=== PATIENT | male | born 1955 | race Caucasian/White ===

== ENCOUNTER 2018-09-25 13:22 | Outpatient (REF) | payer BC, SELFPAY ==
[2018-09-25 22:25] LABS: Microalb ug/mg Crea 35.9 ug/mg Cr
== END 2018-09-25 13:42 ==
LOC: NCHCN 13:22
PROVIDERS: Visit Provider Internal Medicine
DX: R07.9 Chest pain, unspecified (principal); E11.9 Type 2 diabetes mellitus without complications
CPT/HCPCS: 82043; 82570

== ENCOUNTER 2018-10-02 16:00 | Outpatient (REF) | payer BC, SELFPAY ==
[2018-10-02 20:58] LABS: BUN 20 mg/dL (7-18); CREATININE 1.36 mg/dL (0.70-1.30); Calcium 9.2 mg/dL (8.5-10.1); Chloride 98 mmol/L (98-107); Glucose 254 mg/dL (70-100); Potassium 4.3 mmol/L (3.5-5.1); Sodium 136 mmol/L (136-145)
== END 2018-10-02 16:20 ==
LOC: NCHCN 16:00
PROVIDERS: Visit Provider Internal Medicine
DX: I10 Essential (primary) hypertension (principal)
CPT/HCPCS: 80048

== ENCOUNTER 2019-03-08 22:01 | Outpatient (REF) | payer BC, SELFPAY ==
[2019-03-08 21:59] LABS: Anion Gap 9.7 mmol/L (3-11); BUN 16 mg/dL (7-18); CO2 28.3 mmol/L (21.0-32.0); CREATININE 1.33 mg/dL (0.70-1.30); Calcium 8.8 mg/dL (8.5-10.1); Chloride 103 mmol/L (98-107); Estimated GFR 54.48 (mL/min/1.73m2); Glucose 218 mg/dL (70-100); Sodium 141 mmol/L (136-145)
== END 2019-03-08 22:21 ==
LOC: NCHCN 22:01
PROVIDERS: Visit Provider Internal Medicine
DX: I10 Essential (primary) hypertension (principal)
CPT/HCPCS: 80048

== ENCOUNTER 2019-09-24 12:23 | Outpatient (REF) | payer BC, SELFPAY ==
[2019-09-24 21:01] LABS: BUN 17 mg/dL (7-18); CREATININE 1.32 mg/dL (0.70-1.30); Calcium 9.1 mg/dL (8.5-10.1); Chloride 101 mmol/L (98-107); Estimated GFR 54.78 (mL/min/1.73m2); Glucose 158 mg/dL (74-106); Potassium 4.3 mmol/L (3.5-5.1); Sodium 139 mmol/L (136-145)
== END 2019-09-24 12:43 ==
LOC: NCHCN 12:23
PROVIDERS: Visit Provider Internal Medicine
DX: I10 Essential (primary) hypertension (principal)
CPT/HCPCS: 80048

== ENCOUNTER 2020-01-03 13:37 | Outpatient (REF) | payer BC, SELFPAY ==
[2020-01-03 21:04] LABS: Anion Gap 10.8 mmol/L (3-11); BUN 20 mg/dL (7-18); CO2 26.2 mmol/L (21.0-32.0); CREATININE 1.56 mg/dL (0.70-1.30); Calcium 8.9 mg/dL (8.5-10.1); Chloride 102 mmol/L (98-107); Estimated GFR 45.18 (mL/min/1.73m2); Glucose 146 mg/dL (74-106); Sodium 139 mmol/L (136-145)
== END 2020-01-03 13:57 ==
LOC: NCHCN 13:37
PROVIDERS: Visit Provider Internal Medicine
DX: I10 Essential (primary) hypertension (principal)
CPT/HCPCS: 80048

== ENCOUNTER 2020-10-05 18:14 | Outpatient (REF) | payer BC, SELFPAY ==
[2020-10-05 21:02] LABS: HCT 45.9 % (40.0-50.0); HGB 15.3 g/dL (13.5-17.5); MCH 29.9 pg (27.0-33.0); MCHC 33.3 % (32.0-36.0); MCV 89.8 fL (80-95); MPV 10.2 fL (8.0-11.0); Platelet Count 227 10^3/uL (130-400); RBC 5.11 10^6/uL (4.36-5.78); RDW 12.8 % (11.8-14.1); RDW-SD 42.2 fL; WBC 8.82 10^3/uL (4.4-10.8)
[2020-10-05 21:23] LABS: ALT 39 U/L (16-63); AST 23 U/L (15-37); Albumin 3.7 g/dL (3.4-5.0); Alkaline Phosphatase 92 U/L (46-116); Anion Gap 10.3 mmol/L (3-11); BUN 19 mg/dL (7-18); Bilirubin, Total 0.2 mg/dL (0.2-1.0); CO2 25.7 mmol/L (21.0-32.0); CREATININE 1.4 mg/dL (0.70-1.30); Calcium 8.9 mg/dL (8.5-10.1); Chloride 102 mmol/L (98-107); Cholesterol 163 mg/dL (<200); Estimated GFR 51.02 (mL/min/1.73m2); Glucose 315 mg/dL (74-106); HDL Cholesterol 24 mg/dL (40-60); Potassium 4.6 mmol/L (3.5-5.1); Sodium 138 mmol/L (136-145); Total Protein 7.1 g/dL (6.4-8.2); Triglyceride 461 mg/dL (<150)
[2020-10-05 22:26] LABS: LDL CHOLESTEROL 70 mg/dL (<100)
[2020-10-06 16:58] LABS: PSA, Screening 0.7 ng/mL (0.0-4.5)
== END 2020-10-05 18:15 | disposition home or self-care (01) ==
LOC: NCHCN 18:14
PROVIDERS: Visit Provider Internal Medicine
DX: E11.9 Type 2 diabetes mellitus without complications (principal); N18.30 Chronic kidney disease, stage 3 unspecified; I25.10 Atherosclerotic heart disease of native coronary artery without angina pectoris; Z12.5 Encounter for screening for malignant neoplasm of prostate
CPT/HCPCS: 80053; 80061; 83721; 84153; 85027

== ENCOUNTER 2020-10-30 15:21 | Outpatient (REF) | payer BC, SELFPAY ==
--- OUTSIDE RECORDS SUMMARY | 2020-10-30 15:27 | XMS_ITS | Continuity of Care Document ---
:1955 Author Organization [facility] Address [address] [place] [address] Support Name Relationship Address Phone Cyndee Wagner Attending Provider [facility] Occupational [facility] [address] [place] [address], [address] [place] [address] PCP, Jose Primary Care Provider Unavailable Unavailabl e Referral Referring Provider Unavailable Unavailable Allergies, Adverse Reactions, Alerts Allergen Type Severity Reaction Last Updated Verified Status MDX PCN (penicillin) Allergy unknown January 07, 2020 Y Active Penicillins Adverse Reaction Unknown January 07, 2020 Y Active Medications Active Medications Medication Dose Units Route Sig Start Date Status Instructio ns None June 10, 2011 Active Ketorolac 10 MG ORAL June 11, 2011 Active Oxycodone 5 MG ORAL EVERY 4 HOURS June 11, 2011 Active Discontinued Medications Medication Dose Units Route Sig Start Discontinued Status Instructions Date Date Hydrocodone 1 tab ORAL ONCE MarchJune 10, Discont inued Bitartrate PRN 2009 For Pain Ibuprofen 800 MG ORAL ONCE MarchJune 10, Discontin ued PRN 2009 For Pain Ketorolac 10 MG ORAL FOUR AprilJune 10, Discontin ued Tromethamine TIMES 2009 [Toradol] DAILY PRN For Pain Oxycodone 2.5 - MG ORAL EVERY AprilJune 10, Discontin ued 15 4 to 6 2009 HOURS PRN For Pain Acetaminophen 1500 MG ORAL .prn December Unverified PRN 2019 Metformin 0 ORAL DAILY December Unverified not sure dose 2019 PO jeannette y; Problem List Active Problems Medical Problem Onset Date Status Abrasion of right lower leg Active Contusion of rib on right side Active Arthralgia of shoulder May 27, 2014 Glenoid labrum tear February 27, 2015 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 Relevant Diagnostic Tests and/or Laboratory Data No known relevant diagnostic tests, laboratory data, and/or discharge summary. Chief Complaint and Reason for Visit Encounter Admit Date Chief Complaint Reason for Visit Departed January 07, 2020 Rib Injury Abrasion of righ t lower leg Physician/Provider 9:09am Contusion of rib on right side Office Visit Contusion of rig ht arm Sprain of right ankle Hospital Discharge Instructions No known hospital discharge instructions. Hospital Discharge Medications Medication Dose Units Route Sig Qty Days Order Date Status In structions Hydrocodone 1 tab ORAL ONCE March Discontinu ed Bitartrate PRN For 2009 Pain Ibuprofen 800 MG ORAL ONCE March Discontinued PRN For 2009 Pain Ketorolac 10 MG ORAL April Discontinued Tromethamine TIMES 2009 DAILY PRN For Pain Oxycodone 2.5 - MG ORAL EVERY 28 April Discontinue d 15 to 6 2009 HOURS PRN For Pain None May Ketorolac 10 MG ORAL May Oxycodone 5 MG ORAL EVERY 29 May Active HOURS 2011 Acetaminophen 1500 MG ORAL .prn January 06, Unveri fied PRN 2019 Metformin 0 ORAL DAILY January 06, Unverified not sure dose 2020 PO daily; Encounters Encounter Facility Location Admit/Visit Discharge/Departure Atte nding Date Date Provider Registered Shad Gary In January 06, Bernard [facility] 2019 10:03am Chela Rain Departed [facility] January 06January 07, 2020 Bernard Physician/Pro [facility] [place] 2019 9:09am 11:08am Chela videcyndee Office Health Visit Encounter Diagnosis Onset Date Abrasion of right lower leg Contusion of rib on right side Contusion of right arm Sprain of right ankle Functional Status No known functional status. Immunizations No known immunizations. Payers Payer Name Policy Type Covered Covered Relationship Subscriber Sub scriber Green Party Green Party Id Id SELF PAY Personal WC WORK[employer] Workers UGO [id number] Self/Same as [employer]GO POON [id number] COMP Compensation [employer] Patient Plan of Care No Known Plan of Care Information Social History Query Response Date Recorded Comment Alcohol Use Yes June 10, 2011 10:05am Smoking Status Former smoker January 07, 2020 9:55am Substance/Street Drug Use No June 10, 2011 10:05 am Query Response Start Date Stop Date Smoking Status Former smoker Vital Signs Vital Reading Result Reference Range Collection Date/ Time Height 6 ft January 07, 2020 9:46am Weight 122.47 kg January 07, 2020 9:46am Temperature 98.5 F 97.6 F-99.6 F January 07, 2020 9:46am Pulse 66 BPM 60-100 January 07, 2020 9:46am Respiration 18 RPM 12-24 January 07, 2020 9:46am Blood Pressure Systolic 158 100-140 December 242019 9:46am Blood Pressure Diastolic 84 50-85 January 07, 2020 9:46am Body Mass Index 36.6 January 07, 2020 9:46am
--- OUTSIDE RECORDS SUMMARY | 2020-10-30 15:27 | XMS_ITS | Continuity of Care Document ---
:1955 Author Organization [facility] Address [address] [place] [address] Care Team Providers Name Role Phone PCP, Jose Primary Care Physician Unavailable Cyndee Wagner Attending Physician Allergies, Adverse Reactions, Alerts Allergen Type Severity [...] w/ PA CXR January 07, 2020 completed Relevant Diagnostic Tests and/or Laboratory Data No known relevant diagnostic tests, laboratory data, and/or discharge summary. Chief Complaint and Reason for Visit Encounter Admit Date Chief Complaint Reason for Visit Departed Clinical January 07, 2020 10:03am Xray Hospital Discharge Instructions No known hospital discharge [...] 5 MG ORAL EVERY 29 May Active 2011 Acetaminophen 1500 MG ORAL .prn January 06, Unveri fied PRN 2019 Metformin 0 ORAL DAILY January 06, Unverified not sure dose 2019 PO daily; Encounters Encounter Facility Location Admit/Visit Discharge/Departure Atte nding Date Date Provider [facility]arted [facility] Chela Rain Dep[facility]ed [facility] January 06January 07, 2020 Bernard Physician/Pr [facility] [place] 2019 9:09am 11:08am [facility] Office Visit Functional Status No known functional status. Immunizations No known immunizations. Payers Payer Name Policy Type Covered Covered Relationship Subscriber Sub scriber Green Party Green Party Id Id SELF PAY Personal WC WORK[employer] Workers [employer]GO [id number] Self/Same as [employer] POON [id number] COMP Compensation AYAH Patient Plan of Care [...]
[2020-10-30 20:25] LABS: COMMENT (LAB VIEW ONLY) 114.96 mg/dL; Microalb ug/mg Crea 36.9 ug/mg Cr
== END 2020-10-30 15:22 | disposition home or self-care (01) ==
LOC: NCHCN 15:21
PROVIDERS: Visit Provider Internal Medicine
DX: E11.9 Type 2 diabetes mellitus without complications (principal)
CPT/HCPCS: 82043; 82570

== ENCOUNTER 2021-04-05 08:13 | Outpatient (REF) | payer BC, SELFPAY ==
[2021-04-06 02:07] LABS: COMMENT (LAB VIEW ONLY) 209.85 mg/dL; Microalb ug/mg Crea 40.5 ug/mg Cr
[2021-04-06 02:11] LABS: Hemoglobin A1C 8.9 % (<5.7)
[2021-04-06 09:15] LABS: Anion Gap 9.2 mmol/L (3-11); BUN 21 mg/dL (7-18); CO2 28.8 mmol/L (21.0-32.0); CREATININE 1.5 mg/dL (0.70-1.30); Calcium 9.1 mg/dL (8.5-10.1); Calculated LDL 83 mg/dL (<100); Chloride 104 mmol/L (98-107); Cholesterol 155 mg/dL (<200); Estimated GFR 47.12 (mL/min/1.73m2); Glucose 186 mg/dL (74-106); HDL Cholesterol 32 mg/dL (40-60); Potassium 4.4 mmol/L (3.5-5.1); Sodium 142 mmol/L (136-145); Triglyceride 204 mg/dL (<150)
== END 2021-04-05 08:14 | disposition home or self-care (01) ==
LOC: NCHCN 08:13
PROVIDERS: Visit Provider Internal Medicine
DX: E11.9 Type 2 diabetes mellitus without complications (principal); I10 Essential (primary) hypertension
CPT/HCPCS: 80048; 80061; 82043; 82570; 83036

== ENCOUNTER 2022-05-02 10:38 | Outpatient (REF) | payer BC, SELFPAY ==
[2022-05-02 15:55] LABS: ALT 29 U/L (16-63); AST 23 U/L (15-37); Albumin 3.8 g/dL (3.4-5.0); Alkaline Phosphatase 89 U/L (46-116); Anion Gap 9.3 mmol/L (3-11); BUN 26 mg/dL (7-18); Bilirubin, Total 0.6 mg/dL (0.2-1.0); CO2 26.7 mmol/L (21.0-32.0); CREATININE 1.6 mg/dL (0.70-1.30); Calcium 9.2 mg/dL (8.5-10.1); Chloride 101 mmol/L (98-107); Estimated GFR 47.52 (mL/min/1.73m2); Glucose 170 mg/dL (74-106); Potassium 4.6 mmol/L (3.5-5.1); Sodium 137 mmol/L (136-145); Total Protein 8.1 g/dL (6.4-8.2)
== END 2022-05-02 10:39 | disposition home or self-care (01) ==
LOC: NCHCN 10:38
PROVIDERS: Visit Provider Nurse Practitioner Family
DX: I10 Essential (primary) hypertension (principal); E11.9 Type 2 diabetes mellitus without complications
CPT/HCPCS: 80053

== ENCOUNTER 2022-07-24 16:22 | Outpatient (REF) | payer BC, SELFPAY ==
[2022-07-24 21:50] LABS: COMMENT (LAB VIEW ONLY) 188.14 mg/dL
[2022-07-24 21:52] LABS: Microalb ug/mg Crea 195.2 ug/mg Cr
== END 2022-07-24 16:23 | disposition home or self-care (01) ==
LOC: NCHCN 16:22
PROVIDERS: Visit Provider Internal Medicine
DX: E11.9 Type 2 diabetes mellitus without complications (principal)
CPT/HCPCS: 82043; 82570

== ENCOUNTER 2022-11-04 12:47 | Outpatient (REF) | payer BC, SELFPAY ==
[2022-11-04 15:40] LABS: HCT 46.8 % (40.0-50.0); HGB 15.6 g/dL (13.5-17.5); MCH 29.8 pg (27.0-33.0); MCHC 33.3 % (32.0-36.0); MCV 89 fL (80-95); MPV 10.8 fL (8.0-11.0); Platelet Count 215 10^3/uL (130-400); RBC 5.24 10^6/uL (4.36-5.78); RDW 13.2 % (11.8-14.1); RDW-SD 43.3 fL; WBC 8.34 10^3/uL (4.4-10.8)
[2022-11-04 15:43] LABS: BUN 23 mg/dL (7-18); CREATININE 1.7 mg/dL (0.70-1.30); Chloride 102 mmol/L (98-107); Estimated GFR 43.91 (mL/min/1.73m2); Glucose 134 mg/dL (74-106); Potassium 4.5 mmol/L (3.5-5.1); Sodium 137 mmol/L (136-145)
[2022-11-04 16:17] LABS: Hemoglobin A1C 7.8 % (<5.7)
== END 2022-11-04 12:48 | disposition home or self-care (01) ==
LOC: NCHCN 12:47
PROVIDERS: Visit Provider Internal Medicine
DX: E11.9 Type 2 diabetes mellitus without complications (principal); N18.30 Chronic kidney disease, stage 3 unspecified
CPT/HCPCS: 80048; 85027; 83036

== ENCOUNTER 2023-12-12 14:51 | Outpatient (REF) | payer MEDICARE, SELFPAY ==
[2023-12-12 14:48] LABS: HCT 46.7 % (40.0-50.0); HGB 15.7 g/dL (13.5-17.5); MCH 30.1 pg (27.0-33.0); MCHC 33.6 % (32.0-36.0); MCV 90 fL (80-95); MPV 10.5 fL (8.0-11.0); Platelet Count 182 10^3/uL (130-400); RBC 5.22 10^6/uL (4.36-5.78); RDW 12.5 % (11.8-14.1); RDW-SD 41.3 fL; WBC 8.88 10^3/uL (4.4-10.8)
[2023-12-12 15:10] LABS: ALT 21 U/L (16-63); AST 13 U/L (15-37); Albumin 3.7 g/dL (3.4-5.0); Alkaline Phosphatase 83 U/L (46-116); Anion Gap 9.4 mmol/L (3-11); BUN 21 mg/dL (7-18); Bilirubin, Total 0.39 mg/dL (0.2-1.0); CO2 26.6 mmol/L (21.0-32.0); CREATININE 1.8 mg/dL (0.70-1.30); Calcium 8.6 mg/dL (8.5-10.1); Chloride 100 mmol/L (98-107); Estimated GFR 40.75 (mL/min/1.73m2); Glucose 274 mg/dL (74-106); Potassium 4.3 mmol/L (3.5-5.1); Sodium 136 mmol/L (136-145); Total Protein 7.4 g/dL (6.4-8.2)
[2023-12-12 16:24] LABS: COMMENT (LAB VIEW ONLY) 163.08 mg/dL
[2023-12-12 16:28] LABS: Microalb ug/mg Crea 190.8 ug/mg Cr
== END 2023-12-12 14:52 | disposition home or self-care (01) ==
LOC: NCHCN 14:51
PROVIDERS: PCP Internal Medicine; Visit Provider Internal Medicine
DX: I10 Essential (primary) hypertension (principal); E11.9 Type 2 diabetes mellitus without complications; N18.30 Chronic kidney disease, stage 3 unspecified
CPT/HCPCS: 80053; 85027; 82043; 82570